=== PATIENT | male | born 1935 | race Caucasian/White ===

== ENCOUNTER → 2017-04-30 | Outpatient (CLI) | payer MEDICARE, OTHER ==
[~2017-04-30] MED LIST: AMMO225L5 TP; ASPI-496 PO; BENA1TAB8 PO; CALC600T4 PO; CARV3.122 PO; CETI10TA18 PO; CHOL5000 PO; DOCU50CA3 PO; FENO145T32 PO; GLYB1.252 PO; HYDR10TA11 PO; IRON18TA PO; LEVO100T5 PO; METAMUCIL425 GM PO; METF500T PO; MULT-658 PO; NITR0.4T SL; OMEG1CAP2 PO; OMEP-110 PO; SIMV40TA3 PO; SITA100T PO; UBID200C PO; VIT1CAPS9 PO; ZOLP10TA5 PO; [UNRECOGNIZED DRUG - CODE] TD
== END | disposition home or self-care (01) ==
LOC: CVU 09:41
PROVIDERS: ATTEND Internal Medicine Cardiovascular Disease
DX: I65.23 Occlusion and stenosis of bilateral carotid arteries (principal); I10 Essential (primary) hypertension; E11.9 Type 2 diabetes mellitus without complications; E78.5 Hyperlipidemia, unspecified; Z95.1 Presence of aortocoronary bypass graft
CPT/HCPCS: 93880

== ENCOUNTER → 2017-10-03 | Outpatient (CLI) | payer MEDICARE, OTHER | END | disposition home or self-care (01) | LOC: PETCFH 08:34 | PROVIDERS: ATTEND Specialist | DX: R22.1 Localized swelling, mass and lump, neck (principal); Z85.810 Personal history of malignant neoplasm of tongue | CPT/HCPCS: 78815; A9552 ==

== ENCOUNTER → 2019-03-28 | Outpatient (CLI) | payer MEDICARE, OTHER ==
[~2019-03-28] MED LIST changes: +HYDR-3059 PO; -HYDR10TA11 PO; -NITR0.4T SL; +NITR0.4T41 SL; +TEST1PAT13 TD; -[UNRECOGNIZED DRUG - CODE] TD
== END | disposition home or self-care (01) ==
LOC: CFH 08:05
PROVIDERS: ATTEND Internal Medicine
DX: M48.061 Spinal stenosis, lumbar region without neurogenic claudication (principal); M51.16 Intervertebral disc disorders with radiculopathy, lumbar region; M47.26 Other spondylosis with radiculopathy, lumbar region
CPT/HCPCS: 72148

== ENCOUNTER → 2020-05-27 | Outpatient (CLI) | payer MEDICARE, OTHER ==
[~2020-05-27] MED LIST changes: +APIX2.5T PO; +BENA5TAB3 PO; -CALC600T4 PO; +CALC600T60 PO; +CARV3.1212 PO; +CETI10TA76 PO; +CHOL10003 PO; +COLE1TAB2 PO; +EMPA1TAB15 PO; -HYDR-3059 PO; +HYDR-3590 PO; +HYDR10TA PO; +Iron PO; +MULT-449 PO; +OMEG-14 PO; +PIOG30TA68 PO; +SEMA1PEN SC; +SIMV40TA20 PO; -SIMV40TA3 PO; -UBID200C PO; +UBID200C33 PO; +ZOLP5TAB6 PO; +benefiber PO
[2020-05-27 13:06] LABS: ALANINE AMINOTRANSFERASE 22 U/L (12-78); ALBUMIN 4.2 g/dL (3.4-5.0); ANION GAP 9 mmol/L (5-15); CALCIUM 9.5 mg/dL (8.5-10.1); CHLORIDE 107 mmol/L (98-107)
[2020-05-27 13:09] LABS: ALKALINE PHOSPHATASE 74 U/L (45-117); BILIRUBIN,TOTAL 1.1 mg/dL (0.2-1.0); TOTAL PROTEIN 7.8 g/dL (6.4-8.2)
== END | disposition home or self-care (01) ==
LOC: STAR 10:14
PROVIDERS: ATTEND Otolaryngology
DX: Z01.818 Encounter for other preprocedural examination (principal); C10.9 Malignant neoplasm of oropharynx, unspecified; K13.21 Leukoplakia of oral mucosa, including tongue; I25.2 Old myocardial infarction; R94.31 Abnormal electrocardiogram [ECG] [EKG]; Z20.822 Contact with and (suspected) exposure to COVID-19
CPT/HCPCS: 80053; 87635; 93005

== ENCOUNTER 2020-06-01 11:37 | Day surgery (SDC) | payer MEDICARE, OTHER ==
[~2020-06-01] VITALS: Ht 177.8 cm; Wt 87.4 kg
[~2020-06-01 11:37] MED LIST changes: +EPINEPHRINE 1 MG/ML, 1ML ONE; +LIDOCAINE 1%, 20ML ONE
[2020-06-01] MEDS ORDERED: CHLORHEXIDINE 15 ML UDC ONE (12:26)
[2020-06-01] MEDS ORDERED: LACTATED RINGERS 1,000 ML IV SCH (12:30)
[2020-06-01] MEDS ORDERED: CHLORHEXIDINE 15 ML UDC MM ONE (12:30)
[2020-06-01] MEDS ORDERED: hydrALAzine 20 MG/ML, 1ML IV PRN (13:00)
[2020-06-01] MEDS ORDERED: ACETAMINOPHEN 325 MG TABLET PO PRN (13:00)
[2020-06-01] MEDS ORDERED: HALOPERIDOL 5 MG/ML IV PRN (13:00)
[2020-06-01] MEDS ORDERED: FENTANYL PF 100 MCG/2ML IV PRN (13:00)
[2020-06-01] MEDS ORDERED: DIPHENHYDRAMINE 50 MG/ML, 1ML IVPush PRN (13:00)
[2020-06-01] MEDS ORDERED: PROMETHAZINE 25 MG/ML, 1ML IVPush PRN (13:00)
[2020-06-01] MEDS ORDERED: LABETALOL 5MG/ML, 20ML IV PRN (13:00)
[2020-06-01] MEDS ORDERED: FENTANYL PF 100 MCG/2ML ONE (13:09)
[2020-06-01] MEDS ORDERED: HYDROCORTISONE 100 MG INJ. ONE (13:28)
[2020-06-01] MEDS ORDERED: PROPOFOL 10 MG/ML, 20ML ONE (14:16)
[2020-06-01] MEDS ORDERED: CEFAZOLIN 1,000 MG ONE (14:16)
[2020-06-01] MEDS ORDERED: ONDANSETRON 2MG/ML, 2ML ONE (14:16)
[2020-06-01] MEDS ORDERED: DEXAMETHASONE 4 MG/ML, 1ML ONE (14:16)
[2020-06-01] MEDS ORDERED: GLYCOPYRROLATE 0.2MG/1ML, 5ML ONE (14:16)
[2020-06-01] MEDS ORDERED: ROCURONIUM 10MG/ML,5ML ONE (14:16)
[2020-06-01] MEDS ORDERED: SUCCINYLCHOLINE 20 MG/ML, 10ML ONE (14:16)
[2020-06-01] MEDS ORDERED: NEOSTIGMINE 1 MG/ML, 10ML ONE (14:16)
[2020-06-01] MEDS ORDERED: OXYcodone 5 MG/5 ML ORAL.SOL UDC ONE ×2 (15:04→15:19)
[2020-06-01] MEDS ORDERED: HYDROmorphone 1 MG/ML, 1ML INJ ONE (15:04)
[2020-06-01] MEDS: HYDROmorphone 1 MG/ML, 1ML INJ IVPush PRN ×2 (15:05→15:14)
[2020-06-01] MEDS: OXYcodone 5 MG/5 ML ORAL.SOL UDC PO PRN (15:15)
== END 2020-06-01 17:02 | disposition home or self-care (01) ==
LOC: OR 11:37 → OUT 17:02
PROVIDERS: ATTEND Otolaryngology
DX: K14.8 Other diseases of tongue (principal); K13.21 Leukoplakia of oral mucosa, including tongue; E03.9 Hypothyroidism, unspecified; K21.9 Gastro-esophageal reflux disease without esophagitis; G47.33 Obstructive sleep apnea (adult) (pediatric); I25.10 Atherosclerotic heart disease of native coronary artery without angina pectoris; E11.9 Type 2 diabetes mellitus without complications; I48.91 Unspecified atrial fibrillation; Z79.01 Long term (current) use of anticoagulants; Z79.899 Other long term (current) drug therapy; Z85.818 Personal history of malignant neoplasm of other sites of lip, oral cavity, and pharynx; Z87.891 Personal history of nicotine dependence; Z92.21 Personal history of antineoplastic chemotherapy
CPT/HCPCS: 41112; 82962; 88305; J0171; J0330; J0690; J1170; J1720; J2405; J2704; J3010; J7120; J1100; J2710